=== PATIENT | female | born 1985 | race Caucasian/White ===

== ENCOUNTER → 2017-05-13 | Outpatient (CLI) | payer BC ==
[2017-05-13 07:32] LABS: Basophils % (A) 0 %; Eosinophils # (A) 0.2 k/uL (0-0.7); Eosinophils % (A) 2 %; HCT 43.6 % (34.0-46.0); HGB 13.8 gm/dL (11.4-16.0); Lymphocytes % (A) 26 %; MCH 31.2 pg (25.0-35.0); MCHC 31.7 g/dL (31.0-37.0); MCV 98.6 fL (80.0-100.0); Mean Platelet Volume 7.4; Monocytes # (A) 0.6 k/uL (0-1.0); Monocytes % (A) 7 %; Neutrophils # (A) 4.9 k/uL (1.3-7.7); Neutrophils % (A) 63 %; Platelet Count 287 k/uL (150-450); RBC 4.42 m/uL (3.80-5.40); RDW 12.3 % (11.5-15.5); WBC 7.7 k/uL (3.8-10.6)
== END | disposition home or self-care (01) ==
LOC: LABWHC1 07:04
PROVIDERS: ATTEND Obstetrics & Gynecology
DX: Z13.220 Encounter for screening for lipoid disorders (principal); Z13.21 Encounter for screening for nutritional disorder
CPT/HCPCS: 36415; 80061; 82306; 84443; 85025

== ENCOUNTER → 2018-04-28 | Outpatient (CLI) | payer BC ==
--- NOTE | 2018-04-28 08:46 | CT ---
EXAMINATION TYPE: CT image guided sinus DATE OF EXAM: 04/28/2018 COMPARISON: None HISTORY: 32-year-old female Chronic sinusitis-image guided sinus TECHNIQUE: Contiguous axial scanning of the facial bones/paranasal sinuses without IV contrast. Imagi ng performed for purposes of intraoperative guidance. DLP: 516 mGycm Automated exposure control for dose reduction was used. FINDINGS: There is moderate to severe mucosal thickening and opacification in the left maxillary sinus. Some hy perdense material is present within probably representing inspissated mucus. Moderate lobulated mucos al thickening lateral right maxillary sinus. Rightward nasal septal deviation. Scattered mild to mode rate mucosal thickening throughout the ethmoid air cells. Frontal sinuses are relatively clear. Mild to moderate mucosal thickening left sphenoid sinus and trace right sphenoid sinus. Suspect prior sinonasal surgery. Visualized paranasal sinuses and mastoid air cells are well pneumatized. Visualized intracranial structures show no gross abnormality. IMPRESSION: MODERATE TO SEVERE CHRONIC PARANASAL SINUS DISEASE ABOVE. IMAGING PERFORMED FOR PURPOSES OF INTRAO PERATIVE GUIDANCE.
== END ==
LOC: RADCTMAIN 07:35
PROVIDERS: ATTEND Otolaryngology
DX: J32.8 Other chronic sinusitis (principal)
CPT/HCPCS: 70486

== ENCOUNTER 2018-07-07 07:50 | Day surgery (SDC) | payer BC ==
[2018-07-01 12:38] VITALS: BMI 22.1
[~2018-07-07 07:50] MED LIST: DEXAMETHASONE SOD PHOSPHATE 10 MG/ML 1 ML VIAL IV ONE; DEXAMETHASONE SOD PHOSPHATE 4 MG/ML 1 ML VIAL IV ONE; FAMOTIDINE 20 MG/2 ML VIAL IV ONE; LACTATED RINGERS 1,000 ML IV SCH; LIDOCAINE 1% 20 ML VIAL (10MG/ML) FOR IV START INTRADERMA PRN; MIDAZOLAM (PF) 2 MG/2 ML VIAL IV PRN; ONDANSETRON 4 MG/2 ML VIAL IVP ONE; ceFAZolin 1,000 MG in DEXTROSE/WATER 1 50ML.BAG IV ONE; fentaNYL (PF) 50 MCG/ML 2 ML AMP IV PRN
[2018-07-07] MEDS: OXYMETAZOLINE 0.05% NASL SPRAY 1 SPRAY BOTTLE NASAL ONE ×5 (08:17→08:39)
[2018-07-07] MEDS ORDERED: SCOPOLAMINE 1.5MG/72HR PATCH TRANSDERM ONE (08:42)
[2018-07-07] MEDS ORDERED: PROPOFOL 10 MG/ML 20 ML VIAL IV ONE (09:52)
[2018-07-07] MEDS ORDERED: MIDAZOLAM 2 MG/2 ML VIAL ONE (09:52)
[2018-07-07] MEDS ORDERED: LIDOCAINE 1% INJ 10MG/ML (20 ML MDV) ONE (09:52)
[2018-07-07] MEDS ORDERED: fentaNYL (PF) 50 MCG/ML 2 ML AMP ONE (09:52)
[2018-07-07] MEDS ORDERED: SUCCINYLCHOLINE CHLORIDE 100 MG/5 ML SYR IV ONE (09:52)
[2018-07-07] MEDS ORDERED: DEXAMETHASONE SOD PHOS (MDV) 100 MG/10 ML VIAL ONE (09:52)
[2018-07-07] MEDS ORDERED: BUPIVACAIN-EPI 0.5%-1:200,000 30 ML VIAL SQ ONE ×2 (09:57)
[2018-07-07] MEDS ORDERED: EPINEPHrine 1 MG/ML (MDV) 30 ML VIAL IRRIGATION ONE (09:57)
[2018-07-07] MEDS ORDERED: LIDOCAINE 1%-EPI 1:100,000 20 ML VIAL SQ ONE (09:57)
[2018-07-07] MEDS ORDERED: BACITRACIN 500 UNIT/GM OINT 28.4 GM TUBE TOPICAL ONE (10:49)
[2018-07-07 11:40] VITALS: TEMP 98
[2018-07-07 11:49] VITALS: RESP 16
--- NOTE | 2018-07-07 12:16 | P.OP ---
Date of Procedure: 07/07/18 Preoperative Diagnosis: Chronic pansinusitis ALLERGIC fungal sinusitis Sinonasal polyposis Postoperative Diagnosis: Same Procedure(s) Performed: Image guided Bilateral functional endoscopic sinus surgery with polypectomy Anesthesia: TOMA Surgeon: Errol Shepard Estimated Blood Loss (ml): 10 Pathology: other (Sinonasal) Condition: stable Disposition: PACU Indications for Procedure: This patient has had a long-standing problem with sinus symptoms including nasal congestion anosmia x-ray sinus pain etc. She's failed aggressive medical therapy with no improvement. CAT scan was reviewed demonstrating bilateral maxillary ethmoid and sphenoid sinusitis. She has failed medical therapy and the sinuses weren't. 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 After long discussion we decided to proceed forward with surgical correction. All risks, benefits, and alternative therapies were discussed. Consent was obtained and all questions were answered. Operative Findings: Patient had widespread sinonasal disease involving the bilateral maxillary total ethmoids and sphenoid sinuses. Polyposis was removed and ALLERGIC mucin and fungal elements were removed also. Description of Procedure: This patient was taken to the operative room and placed in the supine position. A general inhalation anesthetic was administered to the patient by mask and subsequently intubated with a cuffed endotracheal tube by the department of anesthesia with a functioning IV line in place. The patient was monitored throughout the entire case by the department of anesthesia. The nasal hairs were trimmed and the nose was injected with lidocaine 1% with bupivacaine utilizing a sphenopalatine nerve block and injection along the uncinate process inferior turbinates and floor the nose. 10 minutes were allowed wait for full vasoconstrictive effects to take place. Endoscopic verification was performed and we utilized image guided verification throughout the entire procedure utilizing a [employer] image guided system. We utilized a 0 and 30 Oglesby j carlos endoscope on a [employer] video system throughout the entire case. We entered the maxillary sinuses below the inferior turbinates bilaterally with a Bettie an endoscopic visualization and made a nasal antral window. We made this nasal antral window quite wide and entered the maxillary sinuses bilaterally removing a large amount of polyposis and ALLERGIC mucin and mycetoma this type material bilaterally. Extensive mucosal disease was encountered and all diseased tissue was removed. After the infraturbinal maxillary antrostomies were performed and all polyps were removed we then visualized the uncinate process which was taken down and the supraturbinal maxillary antrostomies were opened wider with a boss. After the maxillary sinuses were opened widely both above and below the inferior turbinates and all diseased tissue was removed and polyps were removed we then noticed that the middle turbinates were previously resected there was a remnant middle turbinate left. We utilized the rest of the maxillary sinus for anatomic landmarks and utilized image guided throughout this portion of the procedure. We followed the trajectory of the roof of the maxillary sinus bilaterally into the sphenoid sinuses and open the sphenoid sinuses after the sphenoid sinuses were open we then went from posterior to anterior and took down and removed all ethmoid septations and polypoid disease we also removed all the sphenoid sinus disease bilaterally again this was done under endoscopic visualization and image guided verification. After we did a total ethmoidectomy removing all ethmoid septations polyps and diseased we reinspected the skull base which was found to be intact and quite open the nasal frontal area appeared open and the CAT scan did not show any frontal sinus disease so we did not open the frontal sinuses. We did insert propel and contour bilaterally under endoscopic guidance. We then inserted xerogel bilaterally and hydrated the xerogel and utilized powdered Surgicel for hemostasis. Excellent results were obtained. The patient was then taken to postanesthesia recovery in excellent condition. Follow-up will be in the office next week. She is to call me if any problems should arise.
[2018-07-07 13:12] VITALS: BP 119/80; PULSE 57
== END 2018-07-07 13:56 | disposition home or self-care (01) ==
LOC: OR 07:50
PROVIDERS: ATTEND Otolaryngology
DX: J32.4 Chronic pansinusitis (principal); J30.89 Other allergic rhinitis; J33.9 Nasal polyp, unspecified; Z88.1 Allergy status to other antibiotic agents; K21.9 Gastro-esophageal reflux disease without esophagitis; Z87.891 Personal history of nicotine dependence; Z79.2 Long term (current) use of antibiotics; Z79.52 Long term (current) use of systemic steroids; Z79.899 Other long term (current) drug therapy; Z91.041 Radiographic dye allergy status; Z91.013 Allergy to seafood; Z91.048 Other nonmedicinal substance allergy status; Z82.49 Family history of ischemic heart disease and other diseases of the circulatory system; Z83.3 Family history of diabetes mellitus; Z82.61 Family history of arthritis
CPT/HCPCS: 81025; 88305; 31255; 61782; C2625 ×2; J0171; J2250; J1100 ×2; J2405; J2001; J3010; J0690; J0330; J2704

== ENCOUNTER → 2020-10-18 | Outpatient (CLI) | payer BC | END | disposition home or self-care (01) | LOC: LABWHC1 14:38 | PROVIDERS: ATTEND Nurse Practitioner Family | DX: Z20.822 Contact with and (suspected) exposure to COVID-19 (principal); J30.89 Other allergic rhinitis; R06.00 Dyspnea, unspecified | CPT/HCPCS: 86769; 36415; C9803 ==